=== PATIENT | male | born 1955 | race Caucasian/White ===

== ENCOUNTER 2025-11-10 11:29 | Outpatient (OUT) | payer MEDICARE, SELFPAY ==
--- OUTSIDE RECORDS SUMMARY | 2025-11-01 13:30 | XMS_ITS | Encounter Summary ---
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); History of neck dissection Social History Tobacco UseTypesPacks/DayYears UsedDateSmoking Tobacco: FormerCigarettesPassive Smoke Exposure: PastSmokeless Tobacco: Never Tobacco Cessation:Counseling Given: Not Answered Alcohol UseStandard Drinks/YkvnTmwkisyuKyt40 (1 standard drink = 0.6 oz pure alcohol)Caffeine intake: 1-2 cups per daySex and Gender InformationValueDate RecordedSex Assigned at YwhpnZzrl34/24/2023 9:26 AM EDTLegal StqBnwm5302/06/2023 11:20 PM EDTGender VqkgprxcVdxh05/24/2023 9:26 AM EDTSexual OrientationStraight 11/10/2024 8:41 AM ESTdocumented as of this encounter Last Filed Vital Signs Vital SignReadingTime TakenCommentsBlood Pressure--Pulse--Temperature-- Respiratory Rate--Oxygen Saturation--Inhaled Oxygen Concentration--Jyhtit61.6 kg (180 lb)11/01/2025 1:10 PM JYJBxfvqo632.3 cm (5' 11 )11/01/2025 1:10 PM ESTBody Mass Index25. 1:10 PM ESTdocumented in this encounter Progress Notes * Arian Bryson DO - 11/01/2025 1:30 PM EST HPI Patient presents today for follow-up. Status post left-sided salvage neck dissection a few weeks ago. He is doing okay. Final pathology only showed the 1 node but with extracapsular extension and LVI. Relevant postoperative physical examination Incision is well healed, no evidence of hematoma or seroma. Assessment/plan Neto was seen today for post-op. Diagnoses and all orders for this visit: 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) (Primary) Comments: this is now the 2nd recurrence for this patient. It is going to show up some place else without further therapy. History of neck dissection Comments: Patient absolutely refuses reradiation. I will take him to tumor board to discuss possibly getting him back on immunotherapy. I will see him back in a month. documented in this encounter Plan of Treatment DateTypeDepartmentCare Team (Latest Contact Info)Luzyeimcgnt19/12/2026 2:15 PM ESTOffice Visit [facility] [address] [place] [phone] Arian Bryson DO [address] [place] [address] documented as of this encounter Visit Diagnoses Diagnosis 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)- Primary History of neck dissection documented in this encounter Care Teams Team MemberRelationshipSpecialtyStart DateEnd Date Shaikh Ware MD [address] [place] [address] PCP - GeneralInternal Medicine02/03/24documented as of this encounter
--- OUTSIDE RECORDS SUMMARY | 2025-11-10 11:43 | XMS_ITS | Encounter Summary ---
Author Organization [facility] Address [address] [place] [address] Care Team Providers Care Global Process Owner Name Role Phone Shaikh CR Ware Primary Care Provider [phone] Encounter Details DateTypeDepartmentCare Team (Latest Contact Info)Twjfsexqzks67/08/2025amboo flowsheet [facility] [address] [place] [phone] Arian Bryson, DO [address] [place] [address] Social History Tobacco UseTypesPacks/DayYears UsedDateSmoking Tobacco: FormerCigarettesPassive Smoke Exposure: PastSmokeless Tobacco: NeverAlcohol UseStandard Drinks/Week LslqhwnjYki78 (1 standard drink = 0.6 oz pure alcohol)Caffeine intake: 1-2 cups per daySex and Gender InformationValueDate RecordedSex Assigned at BirthMale 04/17/2023 9:26 AM EDTLegal KhlJyxw4202/06/2023 11:20 PM EDTGender IdentityMale 04/17/2023 9:26 AM EDTSexual EteipbaxoerFwgcnnpl26/17/2024 8:41 AM ESTdocumented as of this encounter Plan of Treatment DateTypeDepartmentCare Team (Latest Contact Info)Mlotddubsnv13/12/2026 2:15 PM ESTOffice Visit [facility] [address] [place] [phone] Arian Bryson, DO [address] [place] [address] documented as of this encounter Visit Diagnoses Not on filedocumented in this encounter Care Teams Team MemberRelationshipSpecialtyStart DateEnd Date Shaikh Ware MD [address] [place] [address] PCP - GeneralInternal Medicine02/03/24documented as of this encounter
--- OUTSIDE RECORDS SUMMARY | 2025-11-10 11:43 | XMS_ITS | Clinical Summary ---
Author Organization [facility] Address [address] [place], [place] [address] Care Team Providers Care Market Development Manager Name Role Phone Guero Bishop Primary Care Provider Allergies No known active allergies Medications MedicationSigDispense QuantityRefillsLast FilledStart DateEnd DateStatus lisinopril(PRINIVIL 20 MG TAB) Take one(1) tablet twice daily.ctive ATENOLOL 25 MG TAB Take one(1) tablet two(2) times daily.ctive Active Problems ProblemNoted DateDiagnosed DateBenign neoplasm of cranial mwvtkv5406/12/2010 Unspecified essential hypertension Overview (08/03/2009): Essential hypertension Social History Tobacco UseTypesPacks/DayYears UsedDateSmoking Tobacco: NeverAlcohol UseStandard Drinks/WeekCommentsYes0 (1 standard drink = 0.6 oz pure alcohol)2-3 beers per day on most daysSex and Gender InformationValueDate RecordedSex Assigned at BirthNot on fileLegal YxcFjxz79/02/2012 8:21 AM ESTGender IdentityNot on file Sexual OrientationNot on file Last Filed Vital Signs Vital SignReadingTime TakenCommentsBlood Mvnkwhpg631/801 2:40 PM EDT Fkrhl162309/11/2010 2:40 PM SXJMvsyqkoyyin18 ??C (98.6 ??F)09/11/2010 2:40 PM EDT Respiratory Dhwc6379 2:40 PM EDTOxygen Wjfpkuahbw47%08/06/2009 12:00 AM EDTInhaled Oxygen Concentration--Viftqo427 kg (220 lb 7.4 oz)09/11/2010 2:40 PM GTOEsgwhy344.4 cm (6' 0.21 )09/11/2010 2:40 PM EDTBody Mass Index29.7309/11/2010 2:40 PM EDT Plan of Treatment Health MaintenanceDue DateLast DoneCommentsAnxiety Gorkkdllc94/29/1971Depression Znhuviudi58/29/1971Hepatitis C Qzlgozqoy86/29/1971DTaP,Tdap,Td Vaccine (1 - Tdap)1972Lipid Xzoygnycy87/29/1988CT Uutvmsffzhxo40/29/1998Cologuard (FIT-DNA)04/22/19982580Nwlozkbbrnp05/29/1998Colorectal Cancer Xlgvxrmsx33/29/1998 Fecal Occult Blood04/22/19980657Cpnjwkarnpjyc60/29/1998Pneumococcal Vaccine: 50+ (1 of 1 - PCV)2003Shingrix Vaccine (1 of 2)2003Diabetes Screening , 08/04/2009, 08/03/2009dvance Directive Discussion 11/25/2024ovid-19 Vaccine (1 - 2024- season)2025Influenza Vaccine (#1) 2025RSV Vaccine (1 - 1-dose 75+ series)2028 Procedures Procedure NamePriorityDate/TimeAssociated DiagnosisCommentsBASIC METABOLIC PANEL Czxsmlg7508/05/2009 7:17 AM EDT from Last 3 Months or Most Recently Relevant to Health Maintenance Results * (ABNORMAL) BASIC METABOLIC PNL (08/05/2009 7:17 AM EDT)ComponentValueRef Range Test MethodAnalysis TimePerformed AtPathologist ImpckzcsuIzkthsr801(H)65 - 100 mg/dLSUMMA HEALTH MAIN RQXGFWMOLAWVY9443 - 25 mg/dLOHIO VALLEY [facility] LABORATORYCreatinine0.820.70 - 1.40 mg/dLSUMMA HEALTH MAIN LABORATORY Egohoz978753 - 146 mmol/LCLEVELST. GABRIEL [facility]IN LABORATORYPotassium4.83.5 - 5.0 mmol/LCLEVELST. GABRIEL HOSPITAL MAIN LXSCILBUQCAjcariry20460 - 110 mmol/LCASHTABULA GENER[facility]IN TWJATEONRQKV702(L)23 - 32 mmol/LCASHTABULA GENERAL [facility] MAIN LABORATORY Anion Soh511 - 15 mmol/LCASHTABULA GENERAL HOSPITAL MAIN LABORATORYCalcium8.78.5 - 10.5 mg/dLSUMMA HEALTH MAIN LABORATORYSpecimen (Source)Anatomical Location / LateralityCollection Method / VolumeCollection TimeReceived TimeBlood specimen (specimen)BLOOD SPECIMEN / Ozvohsr7208/05/2009 7:17 AM EDT Narrative Authorizing ProviderResult TypeResult StatusJoung H LeeLABORATORYFinal Result Performing OrganizationAddressCity/State/ZIP CodePhone Number [facility] [address] [place] [address] from Last 3 Months or Most Recently Relevant to Health Maintenance Insurance * Guarantor: Janene CONDON TypeRelation to PatientDate of BirthPhoneBilling AddressPersonal/CputyiExyo1955 [address] [place] [address] Care Teams Team MemberRelationshipSpecialtyStart DateEnd Date Guero Bishop [address] [place] [phone] [facility]08/03/09
--- OUTSIDE RECORDS SUMMARY | 2025-11-10 11:43 | XMS_ITS | Patient Health Record ---
Author Organization [facility] Address [address] [place] [address] Care Team Providers Care Kicking Machine Operator Name Role Phone Dr. Mars Yao Primary Care Provider [phone] Reason For Referral No Information Medications Medication SIG (Take, Route, Frequency, Duration) Notes Start Date End Date Status Ibuprofen 800 MG Tablet 1 tablet with fo od or milk as needed Orally Three times a day 09/15/2021ctive Plan Of Treatment No Information Insurance Providers Payer Name Payer Address Payer Phone Subscriber Number Group Number Insured Name Patient Relationship to Insured Coverage Start Date Coverage End Date [employer] [address] [address] [place] [address] [id number] ESTEBAN CONDONelf - patient is the [id number] 2022ENTAL AETNA MEDICAREPO [address] [address] [place] [id number], MARKSelf - patient is the [id number] 2022
--- OUTSIDE RECORDS SUMMARY | 2025-11-10 11:43 | XMS_ITS | Clinical Summary ---
Author Organization [facility] Address [address] [place] [address] Care Team Providers Care Crime Scene Analyst Name Role Phone Shaikh CR Ware Primary Care Provider [phone] Allergies Active AllergyReactionsCriticalityNoted DateCommentsPoison Mila ExtractRashLow 03/11/2024 Medications MedicationSigDispense QuantityRefillsLast FilledStart DateEnd DateStatus cholecalciferol (Vitamin D-3) 25 MCG (1000 UT) capsule Take 1,000 Units by mouth 1 (one) time each day at the same timeActive Cyanocobalamin (Vitamin B12 TR) 2000 MCG tablet controlled-release Take 2,000 mcg by mouth DailyActive HYDROcodone-acetaminophen ([place]) 7.5-325 MG tablet Take 1 tablet by mouth every 6 (six) hours if fwjepr9612/03/2022ctive FeroSul 325 (65 Fe) MG tablet Take 1 tablet by mouth Daily11/07/2023ctive pantoprazole (ProtoNix) 40 MG EC tablet Take 40 mg by mouth Daily11/03/2023ctive dextrose 5 % solution 50 mL with pembrolizumab 100 MG/4ML solution 200 mg Infuse 200 mg into a venous catheter every 30 (thirty) daysActive atenolol (Tenormin) 25 MG tablet Indications:Essential (primary) hypertension,Benign essential hypertensionTAKE 2 TABLETS EACH MORNING AND 1 TABLET IN THE EVENING 270 tablet ctive losartan (Cozaar) 100 MG tablet Indications:Primary hypertensionTAKE 1 TABLET BY MOUTH EVERY DAY 90 tablet ctive Ferrous Fumarate 325 (106 Fe) MG tablet Take 325 mg by mouth5Active Active Problems ProblemNoted DateDiagnosed DateOropharyngeal rluzwb7412/02/2023 Assessment & Plan (02/03/2024 4:24 PM EDT): Base of tongue - s/p surgery, chemo and radiation. In remission. Currently on Prembulizumab Recent labs reviewed - ordered by oncology - normal. Assessment & Plan (12/02/2023 5:08 PM EST): Base of tongue - s/p surgery, chemo and radiation. In remission. Currently on Prembulizumab Primary woncgzhdubcz73/08/2024 Assessment & Plan (02/03/2024 4:22 PM EDT): Above goal but usually well controlled. Will not make any changes. Asked to monitor at home. C/w losartan, hydrochlorothiazide, Atenolol. Assessment & Plan (12/02/2023 5:05 PM EST): BP well controlled. On average less than 130/90. Tolerating Anti hypertensive w/o adverse effects. Denies lightheadedness, dizziness, syncope, presyncope. Patient encouraged to continue with home BP monitoring and call office if he experiences orthostatic symptoms or persistently elevated BP. C/w Losartan, Atenolol Iron deficiency anemia due to chronic blood loss12/02/2023 Assessment & Plan (02/03/2024 4:23 PM EDT): On PO Iron. Will repeat iron levels and CBC Patient has an apt with GI - strongly encouraged to get colonoscopy due to PERLITA and current hx of tongue cancer s/p rx. Assessment & Plan (12/02/2023 5:08 PM EST): On PO Iron. Will repeat Iron profile before next appointment. Never had Colonoscopy. He is already established with GI. 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 Doing well now. On Protonix. 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 Uses Augmentin as needed for recurrent infected dental caries. Asking for a prescription. Will callit in for when he needs it. Patient is very reliable, with good insight. 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); History of neck azwibwietf79/08/2025amboo flowsheet [facility] [address] [place] [address] Arian Bryson, 11/01/20256083Zjcpgb82/24/2025 1:30 PM ESTOffice Visit [facility] [address] [place] [address] Arian Bryson, 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) (Primary Dx)10/18/2025amboo flowsheet [facility] [address] [place] [address] Arian Bryson, DO 10/18/20251483Gwedpw90/16/2025External Result Encounter [facility] External Department Unsolicited Arian Bryson, DO 10/10/2025External Result Encounter [facility] External Department Unsolicited Arian Bryson, DO 10/09/2025External Result Encounter [facility] External Department Unsolicited Arian Bryson, DO 10/09/2025External Result Encounter [facility] External Department Unsolicited Arian Bryson W, DO 10/09/2025External Result Encounter [facility] External Department Unsolicited Arian Bryson, DO 10/08/2025 8:45 AM ESTProcedure Visit [facility] EXT DEP Braydon Arian Leidy, DO 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)10/05/2025 Telephone [facility] [address] [place] [address] Janeen Haney MA 10/05/2025Telephone [facility] [address] [place] [address] Marek Zhou RN 09/24/2025External Result Encounter [facility] External Department Unsolicited Arian Bryson Leidy, DO 09/24/2025External Result Encounter [facility] External Department Unsolicited Arian Bryson Leidy, DO 09/24/2025External Result Encounter [facility]OM[facility] External Department Unsolicited Arelisaleks Arian Leidy, DO 09/15/2025 10:00 AM EDTOffice Visit [facility] [address] [place] [address] Arian Bryson, DO 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) (Primary Dx)09/15/2025amboo flowsheet [facility] [address] [place] [address] Arian Bryson, DO 09/15/20251813Koydwh22/16/2025Telephone [facility] [address] [place] [address] Arian Bryson, 09/01/2025 1:00 PM EDTOffice Visit [facility] [address] [place] [address] Arian Bryson, Neck mass (Primary Dx); History of head and neck gzhdwk4709/01/2025amboo flowsheet [facility] [address] [place] [address] Arian Bryson, 09/01/20254939Jdrmqc56/02/2025Orders Only [facility] [place] [facility] [address] [place] [address] Micah Barnhart MA Malignant neoplasm of head, face and neck (HCC)08/24/2025 3:00 PM EDTAncillary Procedure [facility] [address] [place] [address] Malignant neoplasm of oropharynx (HCC); History of neck dissection; History of head and neck yafisldnf87/30/4555Rpoqne00/24/2025 1:15 PM EDTOffice Visit [facility] [address] [place] [address] Arian Bryson, Malignant neoplasm of oropharynx (HCC) (Primary Dx); History of neck dissection; History of head and neck radiation; Neck mass08/18/2025amboo flowsheet [facility] [address] [place] [address] Arian Bryson, 08/18/2025Travelfrom Last 3 Months Immunizations ImmunizationAdministration DatesNext DuePneumococcal Polysaccharide PPSV23 12/18/2015Zoster, live10/02/2015 Family History Medical HistoryRelationNameCommentsCancerFatherDiabetesFatherHeart diseaseFather Heart failureFatherHypertensionFatherLung cancerFatherHeart diseaseMaternal GrandfatherHeart diseaseMaternal GrandmotherHeart diseaseMotherStrokeMotherHeart diseasePaternal GrandfatherHeart diseasePaternal GrandmotherRelationNameStatus CommentsFatherMaternal GrandfatherMaternal GrandmotherMotherPaternal Grandfather Paternal Grandmother Social History Tobacco UseTypesPacks/DayYears UsedDateSmoking Tobacco: FormerCigarettesPassive Smoke Exposure: PastSmokeless Tobacco: Never Tobacco Cessation:Counseling Given: Not Answered Alcohol UseStandard Drinks/GzkmYlvmccicXvh44 (1 standard drink = 0.6 oz pure alcohol)Caffeine intake: 1-2 cups per daySex and Gender InformationValueDate RecordedSex Assigned at GnwjvMrrt64/24/2023 9:26 AM EDTLegal QsxEfyd2602/06/2023 11:20 PM EDTGender PngbobmjRrsm48/24/2023 9:26 AM EDTSexual OrientationStraight 11/10/2024 8:41 AM EST Last Filed Vital Signs Vital SignReadingTime TakenCommentsBlood Ajwcaicu791/90002/03/2024 4:02 PM EDT Mviot629802/03/2024 4:02 PM EDT97% X4Kjjxsycjigk62.1 ??C (98.7 ??F)02/03/2024 4:02 PM EDTRespiratory Rate--Oxygen Kgygqggula00%12/02/2023 4:43 PM ESTInhaled Oxygen Concentration--Zbufvx25.6 kg (180 lb)11/01/2025 1:10 PM MHEKyewxc283.3 cm (5' 11 )11/01/2025 1:10 PM ESTBody Mass Index25. 1:10 PM EST Plan of Treatment DateTypeDepartmentCare Team (Latest Contact Info)Seudaakudsp78/12/2026 2:15 PM ESTOffice Visit [facility] [address] [place] [address] Arian Bryson, DO [address] [place] [address] Procedures Procedure NamePriorityDate/TimeAssociated DiagnosisCommentsPREALBUMINRoutine 10/10/2025 5:55 AM EST DIFF AND UWQDldkgcx69/16/2025 5:55 AM EST WAHKhgjfrd79/16/2025 5:55 AM EST PYILOOACplwfju98/16/2025 5:55 AM EST BASIC METABOLIC OCVHCYmmsenc61/16/2025 5:55 AM EST ECG 12-LEAD10/09/2025 8:15 AM EST BASIC METABOLIC DHBLVIgixlxl69/15/2025 3:34 AM EST CBC WITH AUTO WPKEEZNOPJQIPpfefom87/15/2025 3:34 AM EST BASIC METABOLIC CYWHTCqnofeg12/31/2025 10:20 AM EDT CBC WITH AUTO NAIQRJFICBLAKmfcirz96/31/2025 10:20 AM EDT ECG 12-LEAD09/24/2025 10:[address] SOFT TISSUE NECK W IV PHPBTDYSOfjkgnd37/30/2025 3:10 PM EDT Malignant neoplasm of oropharynx (HCC) History of neck dissection History of head and neck radiation from Last 3 Months Results * (ABNORMAL) DIFF AND CBC (10/10/2025 5:55 AM EST)ComponentValueRef RangeTest MethodAnalysis TimePerformed AtPathologist SignatureWBC7.84.1 - 10.5 [CFU]/mL 10/10/2025 6:26 AM [facility] CtrUNCORRECTED WHITE BLOOD COUNT7.84.1 - 10.5 10*3/uL10/10/2025 6:26 AM [facility] Ctr RBC3.34(L)3.90 - 5.60 10*6/uL10/10/2025 6:26 AM [facility] WgwVYDQJGUPME51.3(L)13.0 - 17.0 g/dL10/10/2025 6:26 AM [facility] RjrLSPOFTDHSC55.3(L)38.8 - 50.0 %10/10/2025 6:26 AM [facility] IxhZLH49.783.5 - 101 fL10/10/2025 6:26 AM [facility] VzoNZX21.927.5 - 35.2 pg10/10/2025 6:26 AM [facility] ZioZEHT90.032.5 - 35.6 g/dL10/10/2025 6:26 AM [facility] CtrRED CELL DISTRIBUTION WIDTH, RDW14.012.0 - 14.8 % 10/10/2025 6:26 AM [facility] CtrPLATELET XFEXW878(L)150 - 450 10*3/uL10/10/2025 6:26 AM [facility] CtrMEAN PLATELET VOLUME, MPV8.66.6 - 10.1 fL10/10/2025 6:26 AM [facility] CtrSEGMENTED HVIILDVCWSJ48(H)50 - 70 %10/10/2025 7:31 AM [facility] CtrBAND UTWJULKOLVD96(H)0 - 5 %10/10/2025 7:31 AM [facility] CtrLYMPHOCYTES3(L)18 - 42 %10/10/2025 7:31 AM [facility] GgkBFLRLJVWN90 - 11 %10/10/2025 7:31 AM [facility] KjxNYKUKHQMY27 - 2 %10/10/2025 7:31 AM [facility] CtrNUCLEATED RED BLOOD CELL1(H)0 - 0 /100{WBC}10/10/2025 7:31 AM [facility] CtrRBC TCSBXYMDBTHzcddxQojczf93/16/2025 7:31 AM [facility] JbaAQEDACJTGDANXLlvygv20/16/2025 7:31 AM [facility] CtrPLATELET PSFJWAVVFzzdtwlgbWsolfu43/16/2025 7:31 AM [facility] CtrGIANT PLATELET TALLY1/100{WBC}10/10/2025 7:31 AM [facility] CtrPLATELET VZIEYQVXXBZgkodcBlityn83/16/2025 7:31 AM [facility] CtrSpecimen (Source)Anatomical Location / LateralityCollection Method / VolumeCollection TimeReceived TimeBlood (Blood)10/10/2025 5:55 AM EST10/10/2025 6:15 AM EST Narrative Authorizing ProviderResult TypeResult StatusBenjamin W Murcek DOLAB BLOOD ORDERABLESFinal ResultPerforming OrganizationAddressCity/State/[facility] CodePhone Number [address] [address], [facility] [address] [place] [address] * TSH (10/10/2025 5:55 AM EST)ComponentValueRef RangeTest MethodAnalysis Time Performed AtPathologist SignatureTHYROID STIMULATING HORMONE1.350.45 - 5.33 u[iU]/mL10/10/2025 7:14 AM [facility] CtrSpecimen (Source) Anatomical Location / LateralityCollection Method / VolumeCollection Time Received TimeOtherTopography unknown / Pagzsbk9110/10/2025 5:55 AM EST10/10/2025 6:15 AM EST Narrative Authorizing ProviderResult TypeResult StatusBenjamin W Murcek DOLAB BLOOD ORDERABLESFinal ResultPerforming OrganizationAddressCity/State/ZIP CodePhone Number [facility] [address] [place] [address], [facility] [address] [place] [address] * (ABNORMAL) Prealbumin (10/10/2025 5:55 AM EST)ComponentValueRef RangeTest MethodAnalysis TimePerformed AtPathologist PejgykdmgBLDZEGFFHT50.1(L)17.0 - 34.0 mg/dL10/10/2025 8:00 AM [facility] CtrSpecimen (Source)Anatomical Location / LateralityCollection Method / VolumeCollection TimeReceived TimeOtherTopography unknown / Otmhpnl2710/10/2025 5:55 AM EST 10/10/2025 6:15 AM EST Narrative Authorizing ProviderResult TypeResult StatusBencristalmin Leidy Watkinscek DOLAB BLOOD ORDERABLESFinal ResultPerforming OrganizationAddressCity/State/ZIP CodePhone Number [facility] [address] [place] [address], [facility] [address] [place] [address] * (ABNORMAL) Albumin (10/10/2025 5:55 AM EST)ComponentValueRef RangeTest Method Analysis TimePerformed AtPathologist SignatureALBUMIN LEVEL2.8(L)3.5 - 5.7 g/dL10/10/2025 6:59 AM [facility] CtrSpecimen (Source) Anatomical Location / LateralityCollection Method / VolumeCollection Time Received TimeOtherTopography unknown / Defjeef2810/10/2025 5:55 AM EST10/10/2025 6:15 AM EST Narrative Authorizing ProviderResult TypeResult StatusBenjamin W Rolandcek DOLAB BLOOD ORDERABLESFinal ResultPerforming OrganizationAddressCity/State/ZIP CodePhone Number [facility] [address] [place] [address], [facility] [address] [place] [address] * (ABNORMAL) Basic metabolic panel (10/10/2025 5:55 AM EST) Only the most recent of3 resultswithin the time period is included. ComponentValueRef RangeTest MethodAnalysis TimePerformed AtPathologist Signature Zmhzpft8376 - 100 mg/dL10/10/2025 6:59 AM [facility] Ctr Comment: Random Glucose Reference Range is dependent on time and content of last meal. Glucose of more than 200 mg/dL in a nonstressed, ambulatory subject supports the diagnosis of Diabetes Mellitus. ADA recommended reference range XHW396 - 25 mg/dL10/10/2025 6:59 AM [facility] CtrCREATININE 0.65(L)0.70 - 1.30 mg/dL10/10/2025 6:59 AM [facility] Ctr ESTIMATED GFR>60. 6:59 AM [facility] QqjPtcpns290 136 - 145 mmol/L112/10/2024 6:59 AM [facility] CtrPotassium, Bld3.53.5 - 5.1 mmol/L112/10/2024 6:59 AM [facility] Ctr Okoycxut836(H)98 - 107 mmol/L112/10/2024 6:59 AM [facility] CtrCarbon Zpnspvu87.821.0 - 31.0 mmol/L112/10/2024 6:59 AM [facility] CtrAnion Gap6.76.0 - 15. 6:59 AM [facility] CtrCalcium7.4(L)8.6 - 10.3 mg/dL10/10/2025 6:59 AM [facility] CtrCREATININE CLR CALC NQERWUZM89.33112/10/2024 6:59 AM [facility] CtrSpecimen (Source)Anatomical Location / LateralityCollection Method / VolumeCollection TimeReceived TimeOtherTopography unknown / Unknown 10/10/2025 5:55 AM EST10/10/2025 6:15 AM EST Narrative Authorizing ProviderResult TypeResult StatusBenjamin W Braydon DOLAB BLOOD ORDERABLESFinal ResultPerforming OrganizationAddressCity/State/ZIP CodePhone Number [facility] [address] [place] [address], [facility] [address] [place] [address] * ECG 12 lead (10/09/2025 8:15 AM EST) Only the most recent of2 resultswithin the time period is included. Specimen (Source)Anatomical Location / LateralityCollection Method / Volume Collection TimeReceived Time10/09/2025 8:15 AM EST [facility] - 10/09/2025 12:46 PM EST [facility] ?[facility] [address] [place] ?[address] ? [place] [address] ? Electrocardiograph Report ? Signed ? Patient: Harms,Neto R ?MR#: [id number] ? : 1955 ?Acct:[id number] ? Age/Sex: 70 / M ?ADM Date: 11/14/25 ? Loc: 4N ?Room: ??0A8021-5 ?Type: ADM IN ?? Attending Dr: Arian Bryson DO ? Ordering Provider: Arian Bryson,DO ?? Date of Service: 10/09/25 ?? ECG/ECG 12 lead ECG: Status post neck dissection ? Copies to: ? Test Reason : ?? Blood Pressure : 150/78 ??mmHG ?? Vent. Rate : ??73 BPM ? Atrial Rate : ??73 BPM ? P-R Int : 162 ms ?QRS Dur : 132 ms ?QT Int : 422 ms ? P-R-T Axes : ??66 -31 -37 degrees ?QTcB Int : 464 ms ? Normal sinus rhythm ?? Left axis deviation ?? Nonspecific intraventricular block ?? T wave abnormality, consider lateral ischemia ?? Abnormal ECG ?? When compared with ECG of 24-Sep-2025 10:06, ?? No significant change was found ?? Confirmed by WILFRIDO MEJIA MD, FACC ([id number]) on 10/09/2025 12:46:10 PM ? Referred By: ?Electronically Signed By: WILFRIDO MEJIA MD, FACC ? Transcribed By: ? MUS ? Signed By ? Wilfrido Mejia MD, CHU ? 10/09/25 1246 Procedure Note Wilfrido Mejia MD - 10/09/2025 [facility] [place] [address] [place] [address] Electrocardiograph Report Signed Patient: Neto Talley RMR#: [id number] : 1955cct:[id number] Age/Sex: 70 / MADM Date: 10/08/25 Loc: Room: 1R7312-2Uxci: ADM IN Attending Dr: Arian Bryson DO Ordering Provider: Arian Bryson DO Date of Service: 10/09/25 ECG/ECG 12 lead ECG: Status post neckdissection Copies to: Test Reason : Blood Pressure : 150/78 mmHG Vent. Rate : 73 BPM Atrial Rate : 73 BPM P-R Int : 162 ms QRS Dur : 132 ms QT Int : 422 ms P-R-T Axes : 66 -31 -37 degrees QTcB Int : 464 ms Normal sinus rhythm Left axis deviation Nonspecific intraventricular block T wave abnormality, consider lateral ischemia Abnormal ECG When compared with ECG of 24-Sep-2025 10:06, No significant change was found Confirmed by KATY HANKINS [facility]ILFRIDO ([id number]) on 10/09/2025 12:46:10 PM Referred By: Electronically Signed By: WILFRIDO MEJIA MD [facility] Transcribed By: MUS Signed By Wilfrido Mejia MD, [facility] 10/09/25 1246 Authorizing ProviderResult TypeResult StatusBenjagamal Bryson DOECG ORDERABLES Final ResultPerforming OrganizationAddressCity/State/ZIP CodePhone Number [facility] [address] [place] [address], [place] * (ABNORMAL) CBC auto differential (10/09/2025 3:34 AM EST) Only the most recent of2 resultswithin the time period is included. ComponentValueRef RangeTest MethodAnalysis TimePerformed AtPathologist Signature WBC12.2(H)4.1 - 10.5 [CFU]/mL10/09/2025 4:33 AM ESTFirelands Regional Medical CtrUNCORRECTED WHITE BLOOD COUNT12.2(H)4.1 - 10.5 10*3/uL10/09/2025 4:33 AM [facility] CtrRBC3.72(L)3.90 - 5.60 10*6/uL10/09/2025 4:33 AM [facility] AbmMGIZUELVCM41.4(L)13.0 - 17.0 g/dL10/09/2025 4:33 AM [facility] PrsZIGJWODJYS61.3(L)38.8 - 50.0 % 10/09/2025 4:33 AM [facility] GuaYCC395.383.5 - 101 fL 10/09/2025 4:33 AM [facility] EgyLRT07.427.5 - 35.2 pg 10/09/2025 4:33 AM [facility] CirGBXP17.332.5 - 35.6 g/dL 10/09/2025 4:33 AM [facility] CtrRED CELL DISTRIBUTION WIDTH, RDW14.112.0 - 14.8 %10/09/2025 4:33 AM [facility] Ctr PLATELET SSLVC218(L)150 - 450 10*3/uL10/09/2025 4:33 AM [facility] CtrMEAN PLATELET VOLUME, MPV8.56.6 - 10.1 fL10/09/2025 4:33 AM [facility] CtrNEUTROPHILS, %90.4. %10/09/2025 4:33 AM [facility] CtrLYMPHOCYTES, %5.0. %10/09/2025 4:33 AM [facility] CtrMONOCYTE/MACROPHAGE, %4.4. %10/09/2025 4:33 AM [facility] CtrEOSINOPHILS, %0.0. %10/09/2025 4:33 AM [facility] CtrBASOPHILS, %0.2. %10/09/2025 4:33 AM [facility] CtrNRBC0.00 - 0.5 /100{WBC}10/09/2025 4:33 AM [facility] YmmIDCLUNPGXYF90.0(H)1.8 - 7.7 10*3/uL10/09/2025 4:33 AM [facility] CtrLYMPHOCYTES0.6(L)1.00 - 4.8 10*3/uL10/09/2025 4:33 AM [facility] CtrMONOCYTES0.50.0 - 0.8 10*3/uL10/09/2025 4:33 AM [facility] CtrEOSINOPHILS0.00.0 - 0.45 10*3/uL 10/09/2025 4:33 AM [facility] CtrBASOPHILS0.00.0 - 0.2 10*3/uL10/09/2025 4:33 AM [facility] CtrSpecimen (Source) Anatomical Location / LateralityCollection Method / VolumeCollection Time Received TimeBlood (Blood)10/09/2025 3:34 AM EST10/09/2025 4:25 AM EST Narrative Authorizing ProviderResult TypeResult StatusBenjamin W Murcek DOLAB BLOOD ORDERABLESFinal ResultPerforming OrganizationAddressCity/State/ZIP CodePhone Number [facility] [address] [place] [address], [facility] [address] [place] [address] * CT soft tissue neck w IV contrast (08/24/2025 3:10 PM EDT)Anatomical Region LateralityModalityHead, NeckComputed TomographySpecimen (Source)Anatomical Location / LateralityCollection Method / VolumeCollection TimeReceived Time 08/25/2025 12:52 PM EDT Impressions 08/25/2025 1:04 PM EDT 2 abnormal necrotic lymph nodes correlating with the marker suspicious for recurrent neoplasm. Small amount of stranding in the preepiglottic fat which is nonspecific but could be postsurgical. Overall, could consider correlation with PET/CT for further staging and extent of disease. ELECTRONICALLY SIGNED BY: Marek Truong MD Narrative 08/25/2025 1:04 PM EDT HISTORY: Left-sided neck mass. Malignant neoplasm of the oropharynx. Prior history of right neck mass with surgical removal. COMPARISON: None available. TECHNIQUE: Series of contiguous helical scans from the skull base to the aortic arch following bolus injection of contrast. All CT scans at this facility use dose modulation, iterative reconstruction, and/or weight based dosing when appropriate to reduce radiation dose to as low as reasonably achievable. RESULT: Correlating with the marker within the left neck there is a rounded lesion measuring around 2.1 x 1.7 cm, with central fluid signal, suspicious for necrotic lymph node, near the left carotid bifurcation. There is additional smaller probable necrotic lymph node measuring 1.0 cm slightly more inferiorly, likely also necrotic lymph node. No other suspicious/abnormal left-sided cervical lymph nodes. Fairly extensive postsurgical changes throughout the right neck with changes from prior resection/reconstruction especially involving the right tongue base, right submandibular region, and also extending more inferiorly throughout the right neck. Apparent resection of the right submandibular gland.Correlate with prior surgical history. No distinct abnormal soft tissue mass via CT in the resection bed. No distinct abnormal right-sided cervical lymphadenopathy. Aside from the postsurgical changes, nasal cavity and oral cavity otherwise grossly unremarkable. Paranasal sinus disease, especially involving the maxillary sinuses with thickening inferiorly, greater on the left. Changes from prior craniotomy in the region of the left cerebellum. Aside from the po stsurgical changes, pharyngeal mucosal space otherwise grossly unremarkable there is a small amountof stranding in the preepiglottic fat which is nonspecific but could be postsurgical. Absent right submandibular gland as above. Atrophic left submandibular gland, which could relate to prior radiation. Parotid glands grossly unremarkable. Thyroid gland grossly unremarkable. Atherosclerotic diseasewith the carotid arteries otherwise grossly patent within limitations of the study. Thickening of the lung apices, otherwise grossly unremarkable. Degenerative changes at the sternoclavicular joints. No distinct acute osseous findings. Degenerative changes throughout the spine. No destructive osseous lesions. Procedure Note Marek Truong MD - 08/25/2025 HISTORY: Left-sided neck mass. Malignant neoplasm of the oropharynx. Prior history of right neck mass with surgical removal. COMPARISON: None available. TECHNIQUE: Series of contiguous helical scans from the skull base to theaortic arch following bolus injection of contrast. All CT scans at this facility use dose modulation, iterativereconstruction, and/or weight based dosing when appropriate to reduceradiation dose to as low as reasonably achievable. RESULT: Correlating with the marker within the left neck there is a rounded lesion measuring around 2.1 x 1.7 cm, with central fluid signal, suspicious fornecrotic lymph node, near the left carotid bifurcation. There isadditional smaller probable necrotic lymph node measuring 1.0 cm slightlymore inferiorly, likely also necrotic lymph node. No othersuspicious/abnormal left-sided cervical lymph nodes. Fairly extensive postsurgical changes throughout the right neck withchanges from prior resection/reconstruction especially involving the righttongue base, right submandibular region, and also extending moreinferiorly throughout the right neck. Apparent resection of the rightsubmandibular gland. Correlate with prior surgical history. No distinctabnormal soft tissue mass via CT in the resection bed. No distinctabnormal right-sided cervical lymphadenopathy. Aside from the postsurgical changes, nasal cavity and oral cavityotherwise grossly unremarkable. Paranasal sinus disease, especiallyinvolving the maxillary sinuses with thickening inferiorly, greater on theleft. Changes from prior craniotomy in the region of the left cerebellum.Aside from the postsurgical changes, pharyngeal mucosal space otherwisegrossly unremarkable there is a small amount of stranding in thepreepiglottic fat which is nonspecific but could be postsurgical. Absentright submandibular gland as above. Atrophic left submandibular gland,which could relate to prior radiation. Parotid glands grosslyunremarkable. Thyroid gland grossly unremarkable. Atherosclerotic disease with the carotid arteries otherwise grossly patent within limitations ofthe study. Thickening of the lung apices, otherwise grossly unremarkable.Degenerative changes at the sternoclavicular joints. No distinct acuteosseous findings. Degenerative changes throughout the spine. Nodestructive osseous lesions. IMPRESSION: 2 abnormal necrotic lymph nodes correlating with the marker suspicious for recurrent neoplasm. Small amount of stranding in the preepiglottic fat which is nonspecificbut could be postsurgical. Overall, could consider correlation with PET/CT for further staging andextent of disease. ELECTRONICALLY SIGNED BY: Marek Truong MD Authorizing ProviderResult TypeResult StatusBenamadou Bryson [facility] PROCEDURESFinal Result from Last 3 Months Insurance Care Teams Team MemberRelationshipSpecialtyStart DateEnd Date Shaikh Ware MD [address] [facility] [place] [id number] PCP - GeneralInternal Medicine02/03/24
--- OUTSIDE RECORDS SUMMARY | 2025-11-10 11:43 | XMS_ITS | Encounter Summary ---
Author Organization [facility] Address [address] [place] [address] Care Team Providers Care Software Design Manager Name Role Phone Shaikh CR Ware Primary Care Provider [phone] Encounter Details DateTypeDepartmentCare Team (Latest Contact Info)Jqpwaycazhe60/08/2025Travel Social History Tobacco UseTypesPacks/DayYears UsedDateSmoking Tobacco: FormerCigarettesPassive Smoke Exposure: PastSmokeless Tobacco: NeverAlcohol UseStandard Drinks/Week NqbyipuwBqu15 (1 standard drink = 0.6 oz pure alcohol)Caffeine intake: 1-2 cups per daySex and Gender InformationValueDate RecordedSex Assigned at BirthMale 04/17/2023 9:26 AM EDTLegal XzvCukt1002/06/2023 11:20 PM EDTGender IdentityMale 04/17/2023 9:26 AM EDTSexual BodrbwimprdRiftxmgv30/17/2024 8:41 AM ESTdocumented as of this encounter Plan of Treatment DateTypeDepartmentCare Team (Latest Contact Info)Apowqgvrhoj94/12/2026 2:15 PM ESTOffice Visit [facility] [address] [place] [phone] Arian Bryson, [address] [place] [address] documented as of this encounter Visit Diagnoses Not on filedocumented in this encounter Care Teams Team MemberRelationshipSpecialtyStart DateEnd Date Shaikh Ware MD [address] [place] [phone] PCP - GeneralInternal Medicine02/03/24documented as of this encounter
--- OUTSIDE RECORDS SUMMARY | 2025-11-10 11:43 | XMS_ITS ---
Author Organization [facility] Address [address] [facility] [place] [address] Care Team Providers Care Partner Manager Name Role Phone Shaikh CR Ware Primary Care Provider [phone] Active Problems ProblemNoted DateDiagnosed DateOropharyngeal eldiky6812/02/2023 Assessment & Plan (02/03/2024 4:24 PM EDT): Base of tongue - s/p surgery, chemo and radiation. In remission. Currently on Prembulizumab Recent labs reviewed - ordered by oncology - normal. Assessment & Plan (12/02/2023 5:08 PM EST): Base of tongue - s/p surgery, chemo and radiation. In remission. Currently on Prembulizumab Primary npvukzqdtkwd31/08/2024 Assessment & Plan (02/03/2024 4:22 PM EDT): [...] Iron deficiency Anemia Schatzki's ring of distal nsgourjmo14/08/2024 Assessment & Plan (12/02/2023 5:06 PM EST): Present[place] [facility] [place] food [place]us - found to have Schatzi ring. Doing well now. On Protonix. 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 Uses Augmentin as needed for recurrent infected dental caries. Asking for a prescription. Will callit in for when he needs it. Patient is very reliable, with good insight. Current Treatment and Therapy Plans No current plan information found. Past Treatment and Therapy Plans No past plan information found. Lifetime Dose Tracking * ChemicalLifetime DoseAutomatic EntryManual JfisaIprmcwoei92 mSv13 mSv0 mSv Resolved Problems ProblemNoted DateDiagnosed DateResolved DateEncounter for antineoplastic sqhyteyqmpzsp01Food impaction of Head and neck vxhdnk90Status post neck kuzvjjdkwf25/03/2024 04/27/2024Malignant neoplasm of base of quoiay75Schatzki's ring
--- OUTSIDE RECORDS SUMMARY | 2025-11-10 11:43 | XMS_ITS | Clinical Summary ---
Author Organization [facility] Address [address] [place] [address] Phone Care Team Providers Care Sports Agent Name Role Phone Unavailable Primary Care Provider Unavailabl e Social History Tobacco UseTypesPacks/DayYears UsedDateSmoking Tobacco: Never AssessedSex and Gender InformationValueDate RecordedSex Assigned at BirthNot on fileLegal Sex Male10/19/2022 5:39 PM ESTGender IdentityNot on fileSexual OrientationNot on file Plan of Treatment Not on file
--- OUTSIDE RECORDS SUMMARY | 2025-11-10 11:44 | XMS_ITS | Clinical Summary ---
Author Organization [facility] tem Address [id number] [place] [address] Care Team Providers Care Investor Relations Specialist Name Role Phone Guero Bishop MD Primary Care Provider Unava ilable Social History Tobacco UseTypesPacks/DayYears UsedDateSmoking Tobacco: Never AssessedChildcare AnswerDate IowqdaymZpbrrquknLxarmwm76/13/2019EmploymentAnswerDate Recorded JudwvvsujfEvdcyjz47/13/2019Purpose - LifeAnswerDate RecordedPurpose and direction in ovccFlxgvll15/11/2021ex and Gender InformationValueDate Recorded Sex Assigned at BirthNot on fileLegal LzlHfvt38/20/2018 9:46 AM EDTGender IdentityNot on fileSexual OrientationNot on file Plan of Treatment Not on file Medical Devices Not on file Insurance * Guarantor: Neto TalleyAccount TypeRelation to PatientDate of BirthPhoneBilling AddressPersonal/[id number] [address] [address] Care Teams Team MemberRelationshipSpecialtyStart DateEnd Date Guero Bishop MD [facility] - [facility] Zpnzssgs08/20/18
[2025-11-10 12:02] LABS: Hematocrit 37.8 % (42.0-54.0); Hemoglobin 12.2 g/dL (14.0-18.0); Immature Granulocytes Abs Auto 0.02 10^3/uL (0.00-0.03); Immature Granulocytes Pct Auto 0.3 % (0.0-0.5); Lymphocytes Absolute Auto 0.9 10^3/uL (1.2-3.8); Mean Corpuscular HGB Conc 32.3 g/dL (29.9-35.2); Mean Corpuscular Hemoglobin 32.2 pg (25.9-34.0); Mean Corpuscular Volume 99.7 fL (80.0-94.0); Platelet Count 306 10^3/uL (150-450); Red Blood Count 3.79 10^6/uL (4.70-6.10); White Blood Count 7.1 10^3/uL (4.0-11.0)
[2025-11-10 13:34] LABS: Alanine Aminotransferase 20 U/L (16-63); Albumin Globulin Ratio 1.0; Albumin Level 3.3 g/dL (3.4-5.0); Alkaline Phosphatase 85 U/L (46-116); Anion Gap 11.5; Aspartate Amino Transferase 16 U/L (15-37); Blood Urea Nitrogen 11.0 mg/dL (7.0-18.0); Calcium 8.7 mg/dL (8.5-10.1); Carbon Dioxide 29.6 mmol/L (21.0-32.0); Chloride 109 mmol/L (98-107); Estimated GFR (African America >60 (>=60 mL/min/1.73m^2); Estimated GFR (Non-African Ame >60 (>=60 mL/min/1.73m^2); Globulin 3.4 g/dL; Glucose 80 mg/dL (74-106); Potassium 4.1 mmol/L (3.5-5.1); Sodium 146 mmol/L (136-145); Thyroid Stimulating Hormone 1.994 uIU/mL (0.358-3.740); Total Protein 6.7 g/dL (6.4-8.2)
== END 2025-11-10 11:30 | disposition home or self-care (01) ==
LOC: LAB 11:41
PROVIDERS: Visit Provider Internal Medicine Hematology & Oncology
DX: C01 Malignant neoplasm of base of tongue (principal); R53.82 Chronic fatigue, unspecified
CPT/HCPCS: 36415; 80053; 84439; 84443; 85025